=== PATIENT | female | born 1970 | race Caucasian/White ===

== ENCOUNTER 2020-06-01 10:56 | Emergency (ER) | payer SELFPAY ==
[~2020-06-01] VITALS: Ht 162.6 cm; Wt 63.5 kg
[2020-06-01 10:58] VITALS: BP 132/91
--- NOTE | 2020-06-01 11:04 | NUR ---
PATIENT PRESENTS TO ED WITH C/O RIGHT ANKLE PAIN . PT STATES SHE FELL BACKWARDS 4 DAYS AGO AND TWISTED ANKLE. PT ICED ANKLE FOR 24 HOURS AND APPLIED MAO WRAP. . DENIES N/V/D; SKIN IS PINK/WARM/DRY; AAOX4 WITH EVEN AND STEADY GAIT; LUNGS CLEAR BL; HR EVEN AND REGULAR; PT DENIES ANY FEVER, CP, SOB, OR COUGH AT THIS TIME; PATIENT STATES PAIN OF 9/10 AT THIS TIME; VSS; PATIENT POSITIONED FOR COMFORT; HOB ELEVATED; BEDRAILS UP X2; BED DOWN. ER MD MADE AWARE OF PT STATUS. DECREASED ROM NOTED WITH FACIAL GRIMACING. CAPILLARY REFILL IS RAPID
--- NOTE | 2020-06-01 11:08 | NUR ---
PORTABLE X-RAY DONE
--- NOTE | 2020-06-01 11:31 | NUR ---
Dr. Dang is evaluating the patient at bedside.
--- NOTE | 2020-06-01 12:18 | NUR ---
APPLIED MAO WRAP TO RIGHT ANKLE AND PT DEMONSTRATED PROPER USE OF CRUTCHES WITHOUT ANY ISSUES
[2020-06-01 12:21] VITALS: BP 128/85
== END 2020-06-01 12:21 | disposition home or self-care (01) ==
LOC: MED 10:56
DX: S93.401A Sprain of unspecified ligament of right ankle, initial encounter (principal); W19.XXXA Unspecified fall, initial encounter; Y93.89 Activity, other specified; Y92.89 Other specified places as the place of occurrence of the external cause; Y99.8 Other external cause status
CPT/HCPCS: 73610; 99283; Q0092